=== PATIENT | female | born 1960 | race Two or more races ===

== ENCOUNTER 2024-11-17 23:02 | Emergency (ER) | payer MEDICAID, SELFPAY ==
[2024-11-17 23:36] VITALS: BP 107/72; PULSE 106; RESP 18; TEMP 36.8; O2SAT 98
--- NOTE | 2024-11-17 23:47 | XR_ITS ---
Examination: CT abdomen and pelvis without contrast. Coronal 3-D reconstructions. Sagittal 2-D reconstructions. Date and time of exam:November 18, 2024 at 0030 hrs. Comparison October 21, 2009 Indications: Onset abdominal pain and weakness today CTDI: vol (mGy): 5.18 DLP: (mGycm): 247 Technique: Axial images of the abdomen have been obtained, 3 mm slice thickness Intravenous contrast material has not been administered. Low dose protocols were performed. One or more of the following dose reduction techniques were used; automated exposure control, adjustment of the mA and/or KV according to patient size, use of iterative reconstruction technique. Findings: No focal liver splenic lesion Absent gallbladder Normal pancreas No extrahepatic biliary tract dilatation No renal or ureteral calculi, no hydronephrosis Aorta normal size No bowel obstruction No pericecal inflammatory change Moderate to large amounts of stool in the rectosigmoid No diverticulitis Rectal wall, axial image 172, shows significant thickening Urinary bladder wall is contracted measuring up to 6 mm in thickness No pelvic mass Moderate osteopenia Impression: Moderate to large amounts of stool in the rectosigmoid Significant thickening of the rectal wall, differential would include proctitis, rectal tumor not excluded, clinical correlation advised, recommend direct inspection of the rectum follow-up
--- NOTE | 2024-11-17 23:48 | PD.EDRME ---
Rapid Medical Screening Exam RME Arrival date/time: 11/17/24 23:02 64-year-old female with a history of hyperlipidemia, hypertension, type 2 diabetes presents to the emergency room with a chief complaint of lower abdominal pain, nausea, constipation x 3 days. I have greeted and performed a focused initial assessment of this patient. A comprehensive ED assessment and evaluation of the patient, analysis of all test results, and completion of the medical decision making process will be conducted by additional ED providers. Chief Complaint: Nausea/Vomiting/Diarrhea Vital signs: Vital Signs Temperature 98.2 F 11/17/24 23:36 Pulse Rate 106 H 11/17/24 23:36 Respiratory Rate 18 11/17/24 23:36 Blood Pressure 107/72 11/17/24 23:36 Pulse Oximetry (%) 98 11/17/24 23:36 Oxygen Delivery Method Room Air 11/17/24 23:36 Vital signs reviewed by provider: Yes
[2024-11-18 00:23] LABS: Basophils % (Auto) 0 % (0-2.5); Eosinophils # (Auto) 0.1 Thou/mm3 (0.0-0.5); Eosinophils % (Auto) 1 % (0-10); Hemoglobin 14.4 g/dL (12.0-16.0); Immature Granulocytes % (Auto) 0 % (0-0); Immature Granulocytes Auto 0.02 Thou/mm3 (0.00-0.00); Lymphocytes # (Auto) 3.1 Thou/mm3 (1.0-4.8); Lymphocytes % (Auto) 29 % (10-50); Mean Corpuscular HGB Conc 35.1 g/dl (31.0-37.0); Mean Corpuscular Hemoglobin 29.9 pg (25.0-35.0); Mean Corpuscular Volume 85 fL (80-100); Monocytes # (Auto) 0.5 Thou/mm3 (0.0-0.8); Monocytes % (Auto) 5 % (0-12); Neutrophils # (Auto) 6.9 Thou/mm3 (1.8-7.7); Neutrophils % (Auto) 65 % (37-80); Nucleated Red Blood Cell % 0 /100 WBC (0); Platelet Count 308 Thou/mm3 (140-440); RDW Standard Deviation 37.2 fL (36.4-46.3); Red Blood Count 4.82 Miln/mm3 (4.00-5.20); White Blood Count 10.6 Thou/mm3 (3.6-11.0)
[2024-11-18 00:41] LABS: Alanine Aminotransferase 24 U/L (10-49); Albumin, Serum 5.1 gm/dL (3.4-4.8); Albumin/Globulin Ratio 1.9 (1.2-2.2); Alkaline Phosphatase 70 U/L (46-116); Anion Gap 12 (7-16); Aspartate Amino Transferase 27 U/L (0-34); BUN/Creatinine Ratio 15 Ratio (12-20); Bilirubin,Total 1.6 mg/dL (0.3-1.2); Blood Urea Nitrogen 12 mg/dL (9-23); Calcium 10.3 mg/dL (8.3-10.6); Calcium (Corrected) 10.3 mg/dL (8.5-10.1); Carbon Dioxide 24.9 mMol/L (20.0-31.0); Chloride 103 mMol/L (98-107); Creatinine (Component) 0.8 mg/dL (0.6-1.3); Globulin 2.7 gm/dL (2.3-3.5); Glucose 187 mg/dL (74-106); Lipase 76 U/L (12-53); Osmolality,Calculated 284 (275-295); Potassium 4.1 mMol/L (3.4-5.1); Sodium 140 mMol/L (136-145); Total Protein 7.8 gm/dL (5.7-8.2); eGFR > 60 See Note
[2024-11-18 00:44] LABS: Collection Type, Urine Clean Catch; Squamous Epithelial Cell,Urine 0 /hpf (0-5)
[2024-11-18 00:52] LABS: Bilirubin,Urine Negative (Negative); Blood,Urine Negative (Negative); Clarity,Urine Clear (Clear/Hazy); Color,Urine Colorless (Lt Yel-Yel); Glucose, Urine Negative (Negative); Ketones,Urine Negative (Negative); Leukocyte Esterase,Urine Positive (Negative); Nitrite,Urine Negative (Negative); Protein,Urine Negative (Neg - Trace); RBC,Urine 2 /hpf (0-3); Specific Gravity,Urine 1.008 (1.001-1.035); Urobilinogen,Urine Negative mg/dL (0.0-1.0); WBC,Urine 43 /hpf (0-5)
--- NOTE | 2024-11-18 01:57 | PRELIM_ITS ---
CT scan of the abdomen and pelvis without intravenous contrast (axial sections with sagittal and davion nal reformats) November 18, 2024 0030 hours Clinical History: Abdominal pain Comparison: NoneFindings: The lung bases are clear.The liver, pancreas, spleen, kidneys and adrenals are unremarkable on this n oncontrast study. The gallbladder is surgically absent. No evidence of bowel obstruction. There are p rominent fluid filled small bowel loops, which may represent ileus. Abundant fecal material is noted within the colon. The appendix is within normal limits (axial image # [id number]). There is no mesent mic or retroperitoneal adenopathy.The urinary bladder is unremarkable. There is no free fluid or buzz e air.The osseous structures are unremarkable.Impression:No evidence of acute intra-abdominal or pelv ic pathology.Constipation with ileus. Report Electronically Signed By: Jam Quispe 11/18/2024 1:57:02 AM [EST]
[2024-11-18 02:51] VITALS: BP 136/80; PULSE 87; RESP 16; TEMP 36.3; O2SAT 99
--- NOTE | 2024-11-18 02:58 | PD.EDNV ---
Nausea/Vomit./Diarrhea-RME/HPI General Chief complaint: Nausea/Vomiting/Diarrhea Stated complaint: VOMITING, FEELS WEAK Arrival date/time: 11/17/24 23:02 RME / HPI RME / HPI Narrative: 11/17/24 23:02 64-year-old female with a history of hyperlipidemia, hypertension, type 2 diabetes presents to the emergency room with a chief complaint of lower abdominal pain, nausea, constipation x 3 days. I have greeted and performed a focused initial assessment of this patient. A comprehensive ED assessment and evaluation of the patient, analysis of all test results, and completion of the medical decision making process will be conducted by additional ED providers. ---- Dr. Driscoll?s Main ED Evaluation: 64yo female with pmhx HTN, HLD, DMII accompanied by her daughter presents to the ED for complaints of N/V and constipation x 2-3 days. Daughter states the patient has been nauseated and constipated for the last few days, reporting this is chronic. Patient last had a small bowel movement 2 days ago, but did not have one yesterday so she drank some Magnesium Citrate without much improvement. Patient states she is passing gas and has been eating fiber. Daughter notes the patient hasn't been able to hold anything down in 2 days. She denies any other associated symptoms. No known allergies. Related Data Home Medications ?Medication ?Instructions ?Recorded ?Confirmed lisinopril 5 mg tablet 10 mg PO QDAY #0 tabs 03/19/16 01/10/19 metformin 1,000 mg tablet 1,000 mg PO BID #0 tabs 05/27/16 01/10/19 (Glucophage) atorvastatin 40 mg tablet (Lipitor) 40 mg PO HS #0 tabs 06/28/17 01/10/19 Allergies Allergy/AdvReac Type Severity Reaction Status Date / Time No Known Allergies Allergy Verified 01/09/19 20:17 Review of Systems Review of Systems Systems Reviewed: All systems reviewed, normal except as documented Narrative Review of Systems: Gen: No fever, no chills, no weight loss EYES: No discharge, no visual changes, no pain HEENT: No ear pain, no congestion, no sore throat PULM: No shortness of breath, no cough, no congestion CV: No chest pain, no dyspnea on exertion, no palpitations GI: + nausea, + vomiting, no diarrhea, no pain, + constipation : No frequency, no urgency, no dysuria Musc/skel: No joint pain, no back pain Skin: No rash. Warm and dry. Psyc: No hallucinations, no depression Heme/Lymph: No easy bleeding or bruising tendencies Neuro: No weakness, no headache Past Medical History Past Medical History CARDIAC: Negative Congestive Heart Failure RESPIRATORY: Negative Chronic Obstructive Pulmonary Disease (COPD) GENITOURINARY: Negative Renal Disease ENDOCRINE: Positive Diabetes Mellitus Type 2; Negative Diabetes Mellitus Type 1 Social History SMOKING STATUS: Never smoker ED Exam Narrative Physical exam: GENERAL APPEARANCE: AxOx4, generally well-appearing, no acute distress. HEENT: NC, AT. MMM. EOMI, clear conjunctiva, oropharynx clear. NECK: Supple without lymphadenopathy. No stiffness or restricted ROM. HEART: Normal rate and regular rhythm, normal S1/S1, no m/r/g LUNGS: CTAB, moving air well. No crackles or wheezes are heard. ABDOMEN: Soft, nontender, nondistended with good bowel sounds heard. BACK: No midline C/T/L spine pain or deformity, No CVAT, no obvious deformity. EXTREMITIES: Without cyanosis, clubbing or edema. MUSCULOSKELETAL: FROM of all major joints, no chest tenderness NEUROLOGICAL: Grossly nonfocal. Alert and oriented, moving all 4 extremities. CN not formally tested but appear grossly intact. Observed to ambulate with normal gait. Skin: Warm and dry without any rash. Course Course Course Narrative: 0430: Patient was able to tolerate PO fluids. Patient is stable to be discharged home. Quality Measures none Orders Category Date Time Status CT abdomen pelvis wo con Stat Exams 11/17/24 23:47 Completed CBC Stat Lab 11/17/24 23:47 Completed CMP [Comprehensive Metabolic Panel] Stat Lab 11/17/24 23:47 Completed Lipase Stat Lab 11/17/24 23:47 Completed UA [Urinalysis] Stat Lab 11/17/24 23:47 Completed Urine Culture Stat Lab 11/17/24 23:47 Received Vital Signs Vital signs: Vital Signs Temperature 98.2 F 11/17/24 23:36 Pulse Rate 106 H 11/17/24 23:36 Respiratory Rate 18 11/17/24 23:36 Blood Pressure 107/72 11/17/24 23:36 Pulse Oximetry (%) 98 11/17/24 23:36 Oxygen Delivery Method Room Air 11/17/24 23:36 Pulse ox is 98% on room air, which is normal according to my interpretation. Nausea/Vomiting/Diarrhea MDM Narrative MDM Narrative:: Scribe Attestation: 11/18/24 - Mary Shahid am scribing for and in the presence of Dr. Driscoll. Patient data External records reviewed:: [facility] previous records (Per chart review, patient was seen here on 12/06/22 for abdominal pain.) Clinical information provided by:: patient Social determinants that could affect healthcare access:: none Patient has the following chronic illnesses:: DM How is presenting disease/condition affected by chronic disease/condition?: uneffected by Evaluation data The following diagnostics were reviewed and interpreted by me:: lab results and radiology exam(s) Lab and/or radiology exams considered but not ordered:: none Interpretation Summary: CBC is normal, Glucose is 187, Lipase is slightly elevated at 76, according to my interpretation. ---- [facility] Preliminary Report Draft Patient: NADER DALAL [facility]. Record#: [id number] Birthdate: 1960 Age/Sex: 64 / F Location: [facility] Attending Dr: Ordering Physician: Date of Service: Procedure(s): Accession Number(s): cc: ~ CT scan of the abdomen and pelvis without intravenous contrast (axial sections with sagittal and coronal reformats) November 18, 2024 0030 hours Clinical History: Abdominal pain Comparison: None Findings: The lung bases are clear. The liver, pancreas, spleen, kidneys and adrenals are unremarkable on this noncontrast study. The gallbladder is surgically absent. No evidence of bowel obstruction. There are prominent fluid filled small bowel loops, which may represent ileus. Abundant fecal material is noted within the colon. The appendix is within normal limits (axial image # [id number]). There is no mesenteric or retroperitoneal adenopathy. The urinary bladder is unremarkable. There is no free fluid or free air. The osseous structures are unremarkable. Impression: No evidence of acute intra-abdominal or pelvic pathology. Constipation with ileus. Report Electronically Signed By: Jam Quispe 11/18/2024 1:57:02 AM [EST] Medications / Prescriptions Medications / Prescriptions considered but not ordered:: none Medication administrations:: none Consultations Consultation(s) initiated? (list below): No Diagnosis Nausea Differential Diagnosis: gastroenteritis, dehydration and other (constipation, SBO, electrolyte abnormality) Most likely diagnosis given after review of the tests above:: see below Admission Indicated Admission indicated?: not indicated Admission Request Was there a request for admission?: No Disposition Plan Disposition Plan: Discharge Discharge Attestation Discharge Attestation: The patient and all family members were given an opportunity to ask questions and understood the discharge instructions. Discharge instructions specifically effects, indications for sooner follow up or return to the emergency department, and the expected course of current diagnosis. Patient condition: Stable Discharge Plan Plan Patient Disposition: HOME (Self Care) Prescriptions/Referrals Prescriptions/Med Rec: No Action lisinopril 5 MG tablet 10 mg PO QDAY Qty: 0 metformin [Glucophage] 1,000 MG tablet 1,000 mg PO BID Qty: 0 atorvastatin [Lipitor] 40 MG tablet 40 mg PO HS Qty: 0 Referrals: No Primary/Family,Physician [Primary Care Provider] - In 1 week Problem List Clinical Impression: Constipation Patient/Caregiver Discharge Instructions Education Materials: Eating a High-Fiber Diet, ED Constipation (Adult) Additional Instructions: Chase un seguimiento con brody m?dico de atenci?n primaria en 2 o 3 d?as para volver a controlarlo. Puede catarino laxantes de venta eyad lupillo 2 d?as m?s seg?n sea necesario. Despu?s de 2 d?as, conc?ntrese en yusef dieta wade en fibra. Puede regresar al departamento de emergencias antes si los s?ntomas empeoran o si nota alg?n problema nuevo y preocupante. Print Language: Citizen Of [place] Stand Alone Forms: Liv Award Info., Patient Portal Info Letter
[2024-11-18 04:45] VITALS: BP 137/76; PULSE 79; RESP 18; TEMP 36.7; O2SAT 98
== END 2024-11-18 04:45 | disposition home or self-care (01) ==
PROVIDERS: Nurse Practitioner Family; Emergency Provider Emergency Medicine
DX: K59.00 Constipation, unspecified (principal); E78.5 Hyperlipidemia, unspecified; I10 Essential (primary) hypertension; E11.9 Type 2 diabetes mellitus without complications
CPT/HCPCS: 36415; 74176; 80053; 81001; 83690; 85025; 87077; 87086; 87186; 99284